=== PATIENT | female | born 1985 | race Two or more races ===

== ENCOUNTER 2025-02-02 13:43 | Observation (INO) | payer BC, SELFPAY ==
[2025-02-02 14:07] VITALS: BP 124/69; BMI 33.3
[2025-02-02 15:14] LABS: Glucose - Point of Care 106 mg/dl (70-99)
== END 2025-02-02 17:48 | disposition home or self-care (01) ==
LOC: LDRP 13:43
PROVIDERS: ADMITTING PHYSICIAN Obstetrics & Gynecology
DX: O26.893 Other specified pregnancy related conditions, third trimester (principal); O24.419 Gestational diabetes mellitus in pregnancy, unspecified control; Z3A.34 34 weeks gestation of pregnancy; M25.562 Pain in left knee; M25.561 Pain in right knee; W01.0XXA Fall on same level from slipping, tripping and stumbling without subsequent striking against object, initial encounter; Y93.01 Activity, walking, marching and hiking; Y92.9 Unspecified place or not applicable
CPT/HCPCS: 59025; 82962; G0378